=== PATIENT | male | born 1995 | race Hispanic/Latino ===

== ENCOUNTER 2016-11-11 14:47 | Inpatient (IN) | payer OTHER, MEDICAID ==
[~2016-11-11] VITALS: Ht 182.9 cm; Wt 92.5 kg
[2016-11-11] MEDS ORDERED: LORazepam 1 mg Tablet PO ONE ×2 (19:55→22:00)
[2016-11-11] MEDS ORDERED: Alum-Mag Hydrox-Simeth 30 mL Suspension PO PRN (20:05)
[2016-11-11] MEDS ORDERED: Benzocaine-Menthol Lozenge 2/Pkg PO PRN (20:05)
[2016-11-11] MEDS ORDERED: Magnesium Hydroxide 10 mL Oral Concentration PO PRN (20:05)
--- NOTE | 2016-11-11 21:41 | NUR ---
ADMISSION NOTE 21 y/o voluntary male arrived on unit @ 17:[address] [facility] ED. Pt. is c/o severe depression w/vague SI but denies a plan or intent. Pt. reports he is here because "I want to get better". Reports he has had increased depression and panic attacks over the last several months d/t persistent chronic back and neck pain sustained from a fall from stairs 2 years ago. He is followed by a [facility] in [place] as well as [facility] for his pain. ED records indicate he woke up this morning and told his family he was suicidal. In our assessment interview, pt. was vague and could not pinpoint when exactly he began feeling suicidal but denied having made any plans or actual intent to kill himself. Agreed to notify staff if he develops a plan or his intent changes. Reports he has decreased appetite and has lost 18 lbs over the last month and is sleeping approx 4-5 hrs nightly w/racing thoughts keeping him awake at night. Stated "I just want things to go back to the way they were", referring to the time before he was in pain. He reports a previous suicide attempt when he was younger, he is unsure of the age but reports it was pre-high school and he used a belt to try to hang himself. He spent time as a child inpatient at [facility] (age 7) and [facility] (age 9). His only family hx of suicide was his sister's . Reports video games help calm him down. No AH/VH or delusions. No HI. Denies hx of trauma. Pt. very tearful and anxious during our 1:1 interview, speaking in a soft, rushed whisper. Calmer later in the evening and sat out in the DR for several hrs watching a movie w/his peers. Medical/Surgical hx: chronic neck and back pain, R wrist pain for which he wears a brace, hx of tubes in his ears
--- NOTE | 2016-11-12 05:06 | NUR ---
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 Slept through the night with uninterrupted sleep. Pt. slept 6.5 hours Monitored pt with q 15 minute face checks for safety, location and accountability
--- NOTE | 2016-11-12 05:35 | NUR ---
Observations 1900 - 0700 Pt was visiting with family at start of shift and it appeared to be going well. Pt affect is mostly flat and guarded. Pt eye contact was ok. Pt is pleasant upon approach. Pt was able to sign and complete admission paperwork with poem writer. Pt was minimally social with peers and staff. Pt is polite and cooperative. Pt maintained behavior control throughout the shift. Pt watched a movie with peers before lying down for the night. Pt first appeared sleep at 2130. Pt was observed every 15 minutes through the night as ordered.
--- NOTE | 2016-11-12 11:34 | PCM.HPPSYC ---
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 He was born in [place] and grew up in [place]. Patient presents today for treatment, complaining of chronic depression, and suicidal ideation. He states that he is going through a tough time though he cannot identify any precipitating factors. He states that it is getting worse and when asked what is making him depressed he states "sad thoughts" but will not further specify. He has been taking duloxetine up until a couple days ago and he wasn't sure if it was making his symptoms worse. He has a lifetime history of depression with previous psychiatric inpatient services at the ages of 7 and 9. His depression has been worsening over the last few months and in the last 2 weeks has become much more difficult to withstand. He woke his father up to let him know he was having suicidal thoughts the morning prior to presenting to outside hospital with subsequent transfer to our unit. He is interested in activities such as spending time with friends and family, video games, and playing guitar. He has been getting less sleep recently both due to difficulty falling asleep and staying asleep. His appetite has been decreased to the point of having an 18 lb weight loss over the last month. He does say that some days he will eat more than one meal and was able to eat breakfast this morning. He reports never having homicidal thoughts, no current suicidal plan and is able to state that he will let staff know if his suicidal feelings worsen. He reports no audio or visual hallucinations. His anxiety level is 9/10 and depression is 7/10. No history of addiction or drug use. Presenting Symptoms: Depression (Months), Anxiety (Weeks) Vegetative Functioning: Sleep (Decreased), Appetite (Decreased), Energy (Normal ) Allergies Coded Allergies: No Known Allergies (Verified Allergy, Unknown, 11/12/16) Psychiatric Treatment History Age at onset: Estimated number of hospitalizations since onset of illness: 2 at ages 7 and 9 What medications/treatments have been effective: not able to state What medications/treatments have been ineffective: Duloxetine Outpatient Treatment History: previously tried fluoxetine and Seroquel with unknown effectiveness Psychological History: Addictions (none) Past Suicide Attempts Yes (belt) Relevant History Relevant Details: Age of First Attempt: Number of Attempts: [1] Date of Last Attempt: Hx non-suicidal Self-Injury No Relevant History Relevant History Details: Hx Violence Towards Other No Past Medical History Past Medical/Surgical History Current and Past Current/Past: Chronic neck and back pain for last 2 years after falling down stairs, recent R wrist pain Problem with Elimination: No Hx Hospitalization: Yes (panic attacks, suicide attempt via hanging ) Hx Surgeries: Yes (tubes in ears ) Hx Anesthesia Reactions: No Family History: None Fam Hx Mental Health Disorder: Unknown Past Social History Family: Single Living Arrangement: with Family (parents) Occupation: [employer] Patient Education Level: GED Patient Service: No Patient Funding Source: Employed Alcohol: Occassional Hx Substance Use: No Substance Use Type: None Review of Systems Constitutional: No: Chills, Fever Cardiovascular: Denies: Chest Pain Respiratory: Denies: Cough, SOB with Exertion, Shortness of Breath Musculoskeletal: Reports: Back Pain, Neck Pain Neurological: Denies: Confusion Psychologic: Reports: Insomnia, Denies: Giddiness, [place] Mental Status Exam Appearance: Neat/well groomed Attitude: Guarded Behavior: Other (Head in hands) Affect: Restricted Mood: Depressed Thought Process/Associations: Logical/Sequential Speech Production: Soft, Mumbled Speech Rate: Normal Speech Articulation: Slurred Thought Content: Appropriate Danger to Self/Suicidal Ideati: Passive Danger to Others: None Hallucinations: Auditory (Denies), Visual (Denies) Consciousness: Alert Orientation: Person, Place, Date, Situation Memory: Grossly Intact Estimate Intellectual Function: Average Basis for IQ estimate: Awareness current events, Word use/vocabulary, Employment history Attention/Concentration & Cogn: Grossly Intact Cognitive Testing Method: Spelling forward & backward Insight: Limited Judgement: Limited Mental Health Plan 21 yo male with a essentially lifelong history of depression. He has two previous psychiatric hospitalizations at the ages of 7 and 9 with one prior suicide attempt by hanging with a belt. Over the last few months depression symptoms have been worsening. Duloxetine 60mg was prescribed about 2 weeks ago which was taking until a couple of days ago and he feels unsure if it was making symptoms worse. He has insomnia and decreased appetite. [place] AXIS I: 1. Major Depressive Disorder AXIS II: deferred AXIS III: Chronic neck and pack pain due to fall down stairs AXIS IV: None known AXIS V: GAF 35 Medications Start Effexor 37.5 mg daily with meal Clonazepam 0.5 mg BID PRN anxiety Trazodone 50 mg HS PRN sleep Treatments Patient is being provided with a high degree of safety through the structure and active adult engagement. We will focus on developing improved coping skills and identifying stressors that may have led to current episode. We will attempt to: Integrate into therapeutic groups, milieu and individual therapy. Maintain in a closely monitored and structured unit Provide low-stimulation environment Obtain collateral data to assist in treatment planning Assess degree of lability of affect and impulse control Complete safety plan Decrease frequency of relapse and need for re-hospitalization Denies thoughts of harm to self Establish a consistent sleep pattern Use medication effective in stabilization of mood and/or thought process Reduce the risk of imminent harm to self and/or others by providing a safe environment Assure patient tolerates medication without side effects Patient will be on the following psychiatric medications: Effexor 37.5 mg daily Trazodone 50 mg daily Clonazepam 0.5 mg BID PRN Treatment Plan for Suicidal Behavior: No current plan for self harm, states that he will notify staff if suicidal thoughts intensify. Cecilia Tyson DO November 12, 2016 11:33
[2016-11-12 15:08] VITALS: BP 119/88; PULSE 105; RESP 19
--- NOTE | 2016-11-12 15:56 | NUR ---
Nursing: Day shift: 0700 to 1900 S: "Yes, I am anxious." Suicidal: "I can't rate how i am that way." O: Pt. spent most of the morning in his room. Out to DR for meals and snacks. Flat facial expression. Rated depression at 6/10. PRN medication: At 1240, pt admitted to feeling very anxious. Was offered Klonopin 0.5 mg p.o. Pt also began scheduled Effexor doses. At 1600, pt came to inspector automatic typewriter and said "I just want you to know it helped. I feel better." In p.m., pt participated with peers in art activities in the group room. A: Remains flat, depressed. P: Continue to assess for effect of meds.
--- NOTE | 2016-11-12 17:48 | NUR ---
Observations [id number] Pt was asleep upon start of shift. Pt slept much of the morning, waking up and attending Community Meeting. Pt was unable to set goal, but did rate mood. He showered, asked to use his phone to collect numbers. Pt did attend group- he was not overly social during group, but warmed up to the group after a while and started talking with peers. Pt played cards and showed other magic tricks. Pt attended meals, eating 100%. He appeared anxious during the day, unsure and emotionally upset at times. Pt was observed every 15 minutes of shift as directed.
--- NOTE | 2016-11-13 04:11 | NUR ---
Observations 1900 - 0700 Pt was visiting with 3 family members at start of shift and it appeared to be going well. Pt affect is mostly flat, guarded and brighter when engaged. Pt speech was soft spoken and eye contact was ok. Pt is pleasant upon approach. Pt was minimally social with peers and staff. Pt is polite and cooperative. Pt maintained behavior control throughout the shift. Pt attended wrap up group and rated his mood 6/10, with 10 being the best. Pt watched a movie with peers, socialized before lying down for the night. Pt first appeared sleep at 2245. Pt was observed every 15 minutes through the night as ordered. Pt is currently asleep with respirations apparent.
--- NOTE | 2016-11-13 05:29 | NUR ---
Nursing Noc Pt pleasant upon interaction, but presents flat and monotone when describing interests and employment, almost robotic with the interaction. Pt taking medications as prescribed and reports good pain control. Noted to be first asleep at 2245 by Q15 minute safety checks. Continuing to monitor mood, behavior and emotional state. CP
--- NOTE | 2016-11-13 09:52 | NUR ---
Nursing Day Shift- Pt. appeared to be sound asleep until 0950. Several attempts had been made to wake him for breakfast and morning meds, but he did not stir to knocking or voice. at 0950 staff shook his foot, he was slow to wake but appeared fully oriented and without distress. He rated his pain as 5/10, and reported having slept well after poor sleep. A- Polite with full affect when awake. Pt. denied suicidal ideation or depression upon waking. P- update note after Pt. awake. Addendum: 11/13/16 at 1036 by ELEN HURTADO RN Pt. rated his depression as 3/10 and anxiety as 7/10. Klonopin 0.5 mg given at 1035.
--- NOTE | 2016-11-13 15:42 | PCM.PNPSY ---
Subjective Date of Service November 13, 2016 Subjective 21 yo male who presented to the mental health center complaining of chronic depression, and suicidal ideation. He states that he is going through a tough time though he cannot identify any precipitating factors. He states that it is getting worse and when asked what is making him depressed he states "sad thoughts" but will not further specify. Today he endorses daily internal struggle but not about any one certain thing. He says that he has not organized his thoughts and isn't able to fully put the pieces together therefore feels it is futile to share his thoughts. Sleep: Actually able to sleep Appetite: Decreased but able to eat Suicidal and homicidal ideation: denies Auditory hallucinations: denies Visual hallucinations: denies Other Psychotic Symptoms: none Anxiety: 3-10/14 Depression: improved, -11/13 Current Medications Current Medications Acetaminophen 650 mg Q4H PRN PO Last administered on 11/12/16 22:18; Admin Dose 650 MG; Start 11/11/16 at 20:05 Clonazepam 0.5 mg BID PRN PO Last administered on 11/13/16 10:34; Admin Dose 0.5 MG; Start 11/12/16 at 12:20 Cyclobenzaprine HCl 10 mg BID PO Last administered on 11/13/16 09:51; Admin Dose 10 MG; Start 11/11/16 at 20:30 Lorazepam 1 mg ONCE ONCE PO Last administered on 11/11/16 19:58; Admin Dose 1 MG; Start 11/11/16 at 19:55; Stop 11/11/16 at 19:56; Status DC Lorazepam 1 mg ONCE ONCE PO Last administered on 11/11/16 22:35; Admin Dose 1 MG; Start 11/11/16 at 22:00; Stop 11/11/16 at 22:01; Status DC Sulindac 200 mg BID PO Last administered on 11/13/16 09:51; Admin Dose 200 MG; Start 11/11/16 at 20:30 Trazodone HCl 50 mg HS PRN PO Last administered on 11/12/16 22:19; Admin Dose 50 MG; Start 11/12/16 at 12:20 Venlafaxine HCl 37.5 mg DAILYWM PO Last administered on 11/13/16 09:51; Admin Dose 37.5 MG; Start 11/12/16 at 12:20 Mental Status Exam Appearance: Neat/well groomed Attitude: Guarded Behavior: Other Affect: Restricted Mood: Depressed (improved) Thought Process/Associations: Logical/Sequential Speech Production: Soft Speech Rate: Normal Speech Articulation: Normal Thought Content: Appropriate Danger to Self/Suicidal Ideati: Passive Danger to Others: None Hallucinations: Auditory (Denies), Visual (Denies) Consciousness: Alert Orientation: Person, Place, Date, Situation Memory: Grossly Intact Estimate Intellectual Function: Average Basis for IQ estimate: Awareness current events, Word use/vocabulary, Employment history Attention/Concentration & Cogn: Grossly Intact Cognitive Testing Method: Spelling forward & backward Insight: Limited Judgement: Limited Mental Health Plan 21 yo male with a essentially lifelong history of depression. He has two previous psychiatric hospitalizations at the ages of 7 and 9 with one prior suicide attempt by hanging with a belt. Over the last few months depression symptoms have been worsening. Duloxetine 60mg was prescribed about 2 weeks ago which was taking until a couple of days ago and he feels unsure if it was making symptoms worse. He has insomnia and decreased appetite. He was started on Effexor, trazadone for sleep, and clonazepam for anxiety which he is doing well with. [place] AXIS I: Major Depressive Disorder AXIS II: deferred AXIS III: Chronic neck and pack pain due to fall down stairs AXIS IV: None known AXIS V: GAF 35 Medications Effexor 37.5 mg daily with meal Clonazepam 0.5 mg BID PRN anxiety Trazodone 50 mg HS PRN sleep Treatments Patient is being provided with a high degree of safety through the structure and active adult engagement. We will focus on developing improved coping skills and identifying stressors that may have led to current episode. We will attempt to: Integrate into therapeutic groups, milieu and individual therapy. Maintain in a closely monitored and structured unit Provide low-stimulation environment Obtain collateral data to assist in treatment planning Assess degree of lability of affect and impulse control Complete safety plan Decrease frequency of relapse and need for re-hospitalization Denies thoughts of harm to self Establish a consistent sleep pattern Use medication effective in stabilization of mood and/or thought process Reduce the risk of imminent harm to self and/or others by providing a safe environment Assure patient tolerates medication without side effects Patient will be on the following psychiatric medications: Effexor 37.5 mg daily with plan to increase to 75 mg 11/14/16 Trazodone 50 mg daily Clonazepam 0.5 mg BID PRN Treatment Plan for Suicidal Behavior: No current plan for self harm, states that he will notify staff if suicidal thoughts intensify. Attending Statement I met w patient and agree w DR Lourdes Clemente/Cecilia Maddox DO November 13, 2016 15:42 Nathan Shannon MD November 13, 2016 16:07
--- NOTE | 2016-11-13 17:40 | NUR ---
[facility] Day Shift Pt maintained behavioral control throughout the shift. Pt affect appears somewhat flat, brighter when engaged with staff and peers. Pt spends most of the AM resting in his room. Pt more active on the unit in the afternoon/evening. Pt attended community meeting in the AM and attended all group activities. Pt is pleasant with staff and peers when active on the unit. Pt attended all meals and ate approx 100% of all meals.
--- NOTE | 2016-11-14 06:27 | NUR ---
nursing, nights, 11-7 s/o- has appeared to sleep after 2345 during q 15 minute assessments. a- no apparent distress. p- monitor behavior/emotional state, quality, times and amount of sleep, use and effect of medication. zohra
--- NOTE | 2016-11-14 11:51 | NUR ---
Nursing Day Shift- S- "Better. Much better." O- Pt. appeared asleep from the start of the shift until 1040. He awoke, and requested a shower. Pt. rated his depression as 3/10 and denied anxiety or suicidal thoughts. His medications were held until he was awake. A- Mood improving. Good sleep. P- Cont. TP
--- NOTE | 2016-11-14 13:35 | PCM.PNPSY ---
Subjective Date of Service November 14, 2016 Subjective I spent 30 minutes both reviewing treatment plan with medical team, interviewing the patient, and providing supportive/educational psychotherapy. More than half of this time counseling the patient. I reviewed the treatment plan with the patient and discussed options available including the potential risks benefits and side effects. He currently reports no side effects, he states that he tends to be sensitive to medications and knows early on if something is going to work or not. He feels like the Effexor has been helpful however would like to increase the dose. He has had 3 doses of Effexor as of this morning. 21 yo male who presented to the mental health [facility] complaining of chronic depression, and suicidal ideation. He states that he is going through a tough time though he cannot identify any precipitating factors. He states that it is getting worse and when asked what is making him depressed he states "sad thoughts" but will not further specify. He reports improvement in his mood and thought process, he is no longer having racing thoughts. The staff reports that he has been active and participating well in 1-1 and group unit activities. She has made friends with some his peers on the unit which she states is also helped with his progress. Today he continues to endorse daily internal struggle but not about any one certain thing. Upon suggestion that part of his internal struggle has to do with feeling frustrated about the way he feels without external factors to explain his feelings he agreed. He was not ready to go into more detail and has not fully supported his thoughts but does feel that he is making progress. Yesterday he stated that he has not organized his thoughts and isn't able to fully put the pieces together therefore feels it is futile to share his thoughts. Appears to be smiling more today, and more open. Sleep: Actually able to sleep Appetite: Decreased but able to eat Suicidal and homicidal ideation: denies Auditory hallucinations: denies Visual hallucinations: denies Other Psychotic Symptoms: none Anxiety: 310 Depression: improved, 10 Current Medications Effexor 37.5 mg daily with meals by mouth Trazodone 50 mg by mouth at bedtime when necessary Clonazepam 0.5 mg by mouth twice a day when necessary anxiety or agitation Cyclobenzaprine 10 mg by mouth twice a day Sulindac 200 mg by mouth twice a day Tylenol 650 mg every 4 hours by mouth when necessary moderate pain Mental Status Exam Appearance: Neat/well groomed Attitude: Guarded Behavior: Other Affect: Well Modulated/Appropriate Mood: Depressed (improved) Thought Process/Associations: Logical/Sequential Speech Production: Soft Speech Rate: Normal Speech Articulation: Normal Thought Content: Appropriate Danger to Self/Suicidal Ideati: Passive Danger to Others: None Hallucinations: Auditory (Denies), Visual (Denies) Consciousness: Alert Orientation: Person, Place, Date, Situation Memory: Grossly Intact Estimate Intellectual Function: Average Basis for IQ estimate: Awareness current events, Word use/vocabulary, Employment history Attention/Concentration & Cogn: Grossly Intact Cognitive Testing Method: Spelling forward & backward Insight: Limited Judgement: Limited Mental Health Plan 21 yo male with a essentially lifelong history of depression. He has two previous psychiatric hospitalizations at the ages of 7 and 9 with one prior suicide attempt by hanging with a belt. Over the last few months depression symptoms have been worsening. Duloxetine 60mg was prescribed about 2 weeks ago which was taking until a couple of days ago and he feels unsure if it was making symptoms worse. He has insomnia and decreased appetite. He was started on Effexor, trazadone for sleep, and clonazepam for anxiety which he is doing well with. He continues to improve with medication and group activity. [place] AXIS I: Major Depressive Disorder AXIS II: deferred AXIS III: Chronic neck and pack pain due to fall down stairs AXIS IV: None known AXIS V: GAF 35 Medications Effexor 37.5 mg daily with meal Clonazepam 0.5 mg BID PRN anxiety Trazodone 50 mg HS PRN sleep Treatments Patient is being provided with a high degree of safety through the structure and active adult engagement. We will focus on developing improved coping skills and identifying stressors that may have led to current episode. We will attempt to: Integrate into therapeutic groups, milieu and individual therapy. Maintain in a closely monitored and structured unit Provide low-stimulation environment Obtain collateral data to assist in treatment planning Assess degree of lability of affect and impulse control Complete safety plan Decrease frequency of relapse and need for re-hospitalization Denies thoughts of harm to self Establish a consistent sleep pattern Use medication effective in stabilization of mood and/or thought process Reduce the risk of imminent harm to self and/or others by providing a safe environment Assure patient tolerates medication without side effects Patient will be on the following psychiatric medications: Effexor 37.5 mg daily with plan to increase to 75 mg today for AM dose tomorrow. Trazodone 50 mg daily Clonazepam 0.5 mg BID PRN Treatment Plan for Suicidal Behavior: No current plan for self harm, states that he will notify staff if suicidal thoughts intensify. Attending Statement I met with the patient for a brief one-to-one, I reviewed the case with Dr. Tyson and agree with her assessment and plan. Cecilia Tyson DO November 14, 2016 13:35 Nathan Shannon MD November 14, 2016 16:59
[2016-11-14 14:03] VITALS: BP 117/79; PULSE 86; RESP 16
--- NOTE | 2016-11-14 17:51 | NUR ---
Human Services Care Specialist/Counselor: S/O: Patient only slept 6.75 hours last night as per staff. He denies S/I and H/I. He denies auditory and visual hallucinations. Depression "pretty much all the time" and anxiety is 0/10. When asked his mood, patient stated, "Pretty good." A: Patient is cooperative, guarded, depressed, passive, limited insight, limited judgment. P: Follow the care plan, coordinate with out-patient providers.
--- NOTE | 2016-11-14 18:06 | NUR ---
[facility] Day Shift Pt affect and behavior mostly unchanged from previous shift. Pt maintained behavioral control throughout the shift. Pt affect appears somewhat flat, brighter when engaged with staff and peers. Pt spends most of the AM resting in his room. Pt more active on the unit in the afternoon/evening. Pt did not attended community meeting in the AM, but did attend all group activities. Pt is pleasant with staff and peers when active on the unit. Pt did not attend breakfast, but did attend all other meals. Pt ate approx 100% of lunch and dinner.
--- NOTE | 2016-11-14 23:18 | NUR ---
NURSING NOTE [id number] Mood: "good" Affect: calm, quiet, pleasant in conversation Behavior: visible in DR for most of the shift, intermittently chatting w/peers. His family visited. Thought processes: denies SI, reports his depression has improved here, denied anxiety or having any panic attacks recently PRNs Tylenol 650 mg @ 17:03 5/10 neck pain Trazodone 50 MG and Klonopin 0.5 mg @ HS
--- NOTE | 2016-11-15 04:27 | NUR ---
nursing, nights, 11-7 s/o- has appeared to sleep after 2214 during q 15 minute assessments. a- no apparent distress. p- monitor behavior/emotional state, quality, times and amount of sleep, use and effect of medication. zohra
[2016-11-15 10:08] VITALS: BP 119/71; PULSE 83; RESP 16
--- NOTE | 2016-11-15 10:38 | NUR ---
Nursing Day Shift- S- "I felt better most of the day yesterday, then I slid off for a few hours in the Evening. Now I feel good. I think if I continue to feel good I would be ready to go tomorrow." O- Pt. had slept 8 hours per report. He was awake and dressed for breakfast, and sitting with peers in the TV area. He stated the above at that time. Pt. appears reserved, with good eye contact. A- Pt. continues to improve since admission. P- Cont. TP.
--- NOTE | 2016-11-15 14:32 | PCM.PNPSY ---
Subjective Date of Service November 15, 2016 Subjective I spent 30 minutes both reviewing treatment plan with medical team, interviewing the patient, and providing supportive/educational psychotherapy. More than half of this time counseling the patient. I reviewed the treatment plan with the patient and discussed options available including the potential risks benefits and side effects. He currently reports no side effects, he states that he tends to be sensitive to medications and knows early on if something is going to work or not. He feels like the Effexor has been helpful and continues to feel even better since his dose was increased this morning. Patient is a 21 yo male [facility] depression, and suicidal ideation. He states that he is going through a tough time though he cannot identify any precipitating factors. He states that it is getting worse and when asked what is making him depressed he states "sad thoughts" but will not further specify. He reports improvement in his mood and thought process, he is no longer having racing thoughts. The staff reports that he has been active and participating well in 1-1 and group unit activities. He has made friends with some his peers on the unit which she states is also helped with his progress. Today he continues to endorse daily internal struggle but not about any one certain thing. Upon suggestion that part of his internal struggle has to do with feeling frustrated about the way he feels without external factors to explain his feelings he agreed and further suggested that it is the majority of his struggle. He continues to refrain from going into more detail and has not fully sorted his thoughts, he wants to work it out in his head but does feel that he is making progress. He has previously stated that he has not organized his thoughts and isn't able to fully put the pieces together therefore feels it is futile to share his thoughts. Appears to be smiling even more today, and is more open in conversation. Sleep: Actually able to sleep with Trazadone Appetite: improved Suicidal and homicidal ideation: denies Auditory hallucinations: denies Visual hallucinations: denies Other Psychotic Symptoms: none Anxiety: 08/16 Depression: improved, 2-09/13 Current Medications Current Medications Venlafaxine HCl 75 mg DAILYWM PO Last administered on 11/15/16t 09:11; Admin Dose 75 MG; Start 11/15/16 at 08:00 Klonpin 0.5 mg BID PO Trazadone 50 mg HQ PO Mental Status Exam Vital Signs Vital Signs Date Time Temp Pulse Resp B/P Pulse Ox O2 Delivery O2 Flow Rate FiO2 11/15/16 10:08 36.6 83 16 119/71 Appearance: Neat/well groomed Attitude: Pleasant, Cooperative Behavior: Other Affect: Well Modulated/Appropriate Mood: Euthymic Thought Process/Associations: Logical/Sequential Speech Production: Soft Speech Rate: Normal Speech Articulation: Normal Thought Content: Appropriate Danger to Self/Suicidal Ideati: Passive Danger to Others: None Hallucinations: Auditory (Denies), Visual (Denies) Consciousness: Alert Orientation: Person, Place, Date, Situation Memory: Grossly Intact Estimate Intellectual Function: Average Basis for IQ estimate: Awareness current events, Word use/vocabulary, Employment history Attention/Concentration & Cogn: Grossly Intact Cognitive Testing Method: Spelling forward & backward Insight: Limited Judgement: Limited Mental Health Plan 21 yo male with a essentially lifelong history of depression. He has two previous psychiatric hospitalizations at the ages of 7 and 9 with one prior suicide attempt by hanging with a belt. Over the last few months depression symptoms have been worsening. Duloxetine 60mg was prescribed about 2 weeks ago which was taking until a couple of days ago and he feels unsure if it was making symptoms worse. He has insomnia and decreased appetite. He was started on Effexor, trazadone for sleep, and clonazepam for anxiety which he is doing well with. He continues to improve with medication and group activity. He has a profound internal struggle precipitated by the lack of external factors. He feels depressed and then gets upset with himself for feeling that way. He has made good progress during his stay in his mood and affect. He has not had success with counseling in the past however he is willing to peruse counseling again to equip himself with tools for managing his internal struggle as he realizes he will likely have some depression symptoms for his entire life. [place] AXIS I: Major Depressive Disorder AXIS II: deferred AXIS III: Chronic neck and pack pain due to fall down stairs AXIS IV: None known AXIS V: GAF 35 Medications Effexor 37.5 mg daily with meal Clonazepam 0.5 mg BID PRN anxiety Trazodone 50 mg HS PRN sleep Treatments Patient is being provided with a high degree of safety through the structure and active adult engagement. We will focus on developing improved coping skills and identifying stressors that may have led to current episode. We will attempt to: Integrate into therapeutic groups, milieu and individual therapy. Maintain in a closely monitored and structured unit Provide low-stimulation environment Obtain collateral data to assist in treatment planning Assess degree of lability of affect and impulse control Complete safety plan Decrease frequency of relapse and need for re-hospitalization Denies thoughts of harm to self Establish a consistent sleep pattern Use medication effective in stabilization of mood and/or thought process Reduce the risk of imminent harm to self and/or others by providing a safe environment Assure patient tolerates medication without side effects Patient will be on the following psychiatric medications: Effexor 75 mg daily Trazodone 50 mg daily at bedtime Clonazepam 0.5 mg BID PRN Treatment Plan for Suicidal Behavior: No current plan for self harm, states that he will notify staff if suicidal thoughts intensify. Cecilia Tyson DO November 15, 2016 14:32
--- NOTE | 2016-11-15 19:21 | NUR ---
Observations 0900 to 2130 Pt affect and mood was friendly, content and bright when engaged. Pt speech and eye contact was good. Pt attended meals in D.R. and ate approximately 90% of his meals. Pt ate snack. Pt attended groups and unit activities. Pt played cards in D.R. Pt was minimally social with select peers. Pt has been pleasant, polite and cooperative. Pt was observed every 15 minutes throughout the shift as ordered. Pt is currently visiting with family and it appears to be going well.
--- NOTE | 2016-11-16 05:25 | NUR ---
nursing, nights, 11-7 s/o- has appeared to sleep after 2315 during q 15 minute assessments. a- no apparent distress. p- monitor behavior/emotional state, quality, times and amount of sleep, use and effect of medication. zohra
[2016-11-16 08:00] VITALS: BP 118/75; PULSE 77; RESP 16
--- NOTE | 2016-11-16 12:00 | PCM.DIMED ---
Discharge Instructions Date of Service November 16, 2016 Dates of Hospitalization November 11, 2016 at 17:09 Discharge Diagnosis Discharge Diagnosis AXIS I: Major Depressive Disorder AXIS II: deferred AXIS III: Chronic neck and pack pain due to fall down stairs AXIS IV: None known AXIS V: GAF 45 Medication Instructions Effexor 75 mg daily Trazodone 50 mg daily at bedtime Diet No restrictions Activity No restrictions Call your provider Fever or Chills Patient Instructions I Strongly encouraged patient to follow up with outpatient care: 1-Recommended patient takes medication as prescribed and not alter this unless under the direct care of a provider. 2-Recommend client refrain from recreational drugs and alcohol while taking psychiatric medications. 3--Recommend patient attempt to find a therapist or group to deal with impulse control and interpersonal relationship conflicts Follow-up plan Follow-up therapy and psychiatric provider appointments per case managers AJ Follow-up with PCP in: 2 weeks Nathan Shannon MD November 16, 2016 12:00
[2016-11-16] MEDS ORDERED: VENL37.57 PO (12:02)
[2016-11-16] MEDS ORDERED: VENL75CA95 PO (12:27)
[2016-11-16] MEDS ORDERED: TRAZ-115 PO ×2 (12:28→12:30)
[2016-11-16] MEDS ORDERED: VENL75TA87 PO (12:30)
--- NOTE | 2016-11-16 13:09 | NUR ---
Nursing Discharge Note: Patient cooperative with discharge process. Acknowledges understanding of d/c instructions and has a copy with them upon leaving unit at 1310. Belongings accounted for and with patient. Prescriptions faxed to patients pharmacy. Patient denies harmful thoughts and hallucinations at this time.
--- NOTE | 2016-11-16 14:21 | DIS ---
[address] [address] DISCHARGE SUMMARY PATIENT: GABE SPARROW : 1995 MR#: [id number] ADMIT: 11/11/2016 JOB ID: [id number] DIS: IDENTIFICATION: Patient is a 21-year-old, single, white male, currently living with his parents in [place]. 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 He was raised in the [facility]. REASON FOR ADMISSION: Client presents for treatment of acute suicidal ideation with a plan. SUMMARY OF PRESENT ILLNESS: Patient is a 21-year-old, white male, who is been struggling for over 10 years with major depression. He has had two previous psychiatric hospitalizations at age 7 and 9 with one prior suicide attempt by hanging with a belt. Over the last several months, his depressive symptoms have been worsening. Cymbalta 60 mg per day was described two weeks prior to admission. However, he felt that it was making the symptoms worse and stopped this for several days prior to admission. He reported insomnia and poor appetite. HOSPITAL COURSE: Client admitted to our unit and was provided with a high degree of safety through the structure and active adult engagement he received here. We had him participate in one-to-one unit and group activities focused on improving coping skills, as well as coming up with a safety plan should suicidal ideation recur as an outpatient. He participated well in all the above activities. He showed a gradual and steady decrease in the intensity of suicidal ideation and today is reporting a resolution of suicidal ideation and is asking for discharge. He is future planning how to keep himself safe and I believe this is appropriate. Client was started on Effexor 37.5 mg per day, which increased to 75 mg. He is reporting a positive response to this with no side effects and will be discharged on this medication. MENTAL STATUS EXAM: Neatly dressed, calm, pleasant, good eye contact. Attitude: Friendly. Speech: Normal rate and rhythm. Mood euthymic. Affect congruent. Normal intensity. No emotional liability. Thought process logical, goal oriented, spontaneous. Thought content: Themes of what he is going to do once he leaves and looking forward to reconnecting with family and friends. He detailed a safety plan to me and denied suicidal ideation or psychotic symptoms. Judgment and insight at baseline. Impulse control highly contained. Reality testing intact. Competence to handle current stressors is appropriate. DIAGNOSIS: [place] I. Major depressive disorder. [place] II. None. [place] III. Chronic pain with neck and back pain due to previous fall. [place] IV. Mild. [place] V. Current Global Assessment of Functioning equal to 45. DISCHARGE PLAN: Per caser for appointments with therapist and psychiatric prescriber. DISCHARGE MEDICATIONS: Effexor 75 mg q.a.m. ACTIVITY AND DIET: Recommend client refrain from recreational drugs and alcohol while taking psychiatric medications. Recommend he not change medications unless under the directions of supervision. CONDITION ON DISCHARGE: Good. PROGNOSIS: Good.
--- NOTE | 2016-11-16 16:05 | NUR ---
[facility] Note P- Patient attended social activities this shift. He ate the meals he was present for on the unit in the dining room with peers. Patient attended all ADLs and appeared well groomed. A- Patient appeared bright and engaged on the unit. He was supportive and social with peers. Patient was looking forward to discharge. P- Continue current discharge plan.
== END 2016-11-16 13:10 | disposition home or self-care (01) | DRG 881 ==
LOC: MHC 17:09
PROVIDERS: ADMIT Psychiatry & Neurology Psychiatry; ATTEND Psychiatry & Neurology Psychiatry
DX: F32.9 Major depressive disorder, single episode, unspecified (principal); R45.851 Suicidal ideations